=== PATIENT | female | born 1980 | race Caucasian/White ===

== ENCOUNTER 2017-03-18 19:31 | Emergency (ER) | payer MEDICAID, OTHER ==
[~2017-03-18] VITALS: Ht 165.1 cm; Wt 118.7 kg
[2017-03-18 19:33] VITALS: BP 125/83
== END 2017-03-18 20:25 | disposition home or self-care (01) ==
LOC: ED 20:15
DX: B86 Scabies (principal)
CPT/HCPCS: 99283

== ENCOUNTER 2017-03-19 15:29 | Emergency (ER) | payer MEDICAID ==
[2017-03-19 15:59] VITALS: BP 130/81
[2017-03-19] MEDS ORDERED: FAMOTIDINE 20 MG TABLET ONE (16:28)
[2017-03-19] MEDS ORDERED: PLEASE ENTER HEIGHT MC SCH (16:30)
[2017-03-19] MEDS ORDERED: FAMOTIDINE 20 MG TABLET PO ONE ×2 (16:30)
== END 2017-03-19 16:54 | disposition home or self-care (01) ==
LOC: ED 16:48
DX: L50.9 Urticaria, unspecified (principal); E11.9 Type 2 diabetes mellitus without complications; F17.210 Nicotine dependence, cigarettes, uncomplicated; F12.10 Cannabis abuse, uncomplicated
CPT/HCPCS: 99284; J7512; Q0177